=== PATIENT | female | born 1985 | race Caucasian/White ===

== ENCOUNTER 2017-06-28 00:09 | Inpatient (IN) ==
[2017-06-28] MEDS ORDERED: IPRATROPIUM/ALBUTEROL 3 ML AMPUL.NEB NEB ONE ×3 (00:41→09:44)
[2017-06-28] MEDS ORDERED: methylPREDNISolone SOD SUCC 125 MG/2 ML VIAL IV ONE (02:07)
[2017-06-28] MEDS ORDERED: ALBUTEROL SULFATE 5 MG/ML NEB SOLUTION BOTTLE NEB ONE ×2 (02:14→03:29)
[2017-06-28] MEDS ORDERED: IPRATROPIUM 2.5 ML AMPUL.NEB NEB ONE (03:37)
[2017-06-28] MEDS ORDERED: MAGNESIUM SULFATE 2 GM/50 ML BAG IV ONE (03:39)
[2017-06-28] MEDS ORDERED: MAGNESIUM SULFATE 8.12 MEQ/2 ML VIAL ONE (03:51)
[2017-06-28] MEDS ORDERED: 0.9 % SODIUM CHLORIDE 1,000 ML IV ONE (03:53)
--- NOTE | 2017-06-28 03:53 | Emergency Department Note ---
SOB HPI - General Chief Complaint: Shortness of Breath/Dyspnea Stated Complaint: suspects Flu, sob Time Seen by Provider: 06/28/17 02:05 Source: patient Mode of arrival: ambulatory Limitations: no limitations - History of Present Illness This 31-year-old female comes to the emergency room shortly after midnight on 08/28/2017 in which she has had severe shortness of breath beginning in the afternoon and similar to previous exacerbations of asthma. She has not had exacerbations of asthma for over 7 years except with some restarting of her asthma in January of this year. She has at home used her albuterol metered-dose inhaler several times. She has had flulike symptoms for a couple of days. - Related Data Previous Rx's Medication Instructions Recorded Amoxicillin 1,000 mg PO BID #40 capsule 05/23/16 Ondansetron [Zofran Odt] 4 mg PO Q4-6H PRN #10 tab 07/15/16 Allergies Allergy/AdvReac Type Severity Reaction Status Date / Time No Known Drug Allergies Allergy Verified 05/23/16 12:19 Review of Systems Review of Systems: General: Hot and cold and chills and sweats and fevers. Cardiovascular: Chest pain. No palpitations. Pulmonary see HPI. Shortness of breath, cough and wheezing. Gastrointestinal some nausea and one episode of vomiting bilious. Neurologic: Headaches and dizziness. Past Medical History - Past Medical History Medical history: Reports: asthma, other ("kidney issues"; pneumonia twice) Surgical history ED: Reports: orthopedic, other (knee surgery) Psychiatric history: Denies: anxiety, depression - Social History smoking status: Current every day smoker Alcohol use: Reports: None, Occasionally Drug use: Reports: none Physical Exam - General Limitations: no limitations General appearance: alert, in distress (see pulmonary.) - Head Head exam: atraumatic, normocephalic - Eye Eye exam: Present: PERRL, EOMI - ENT ENT exam: normal oropharynx, mucous membranes moist - Respiratory Respiratory exam: Present: respiratory distress (Mild, manifested as tachypnea in the 24-28 range.), wheezes (Severe, polyphonic herrera inspiratory and herrera expiratory Throughout all lung goins.), accessory muscle use (Very slight or mild supraclavicular and sternal notch.), prolonged expiratory phase (Mild to occasionally moderately.). Absent: stridor - Cardiovascular Cardiovascular exam: Present: regular rate, tachycardia. Absent: systolic murmur, diastolic murmur - Abdominal Exam Abdominal exam: Present: soft. Absent: distention, tenderness, guarding, rebound, rigidity - Extremities Exam Extremities exam: Absent: pedal edema, pretibial edema - Neurological Exam Neurological exam: Present: alert, oriented X3 - Psychiatric Psychiatric exam: Present: normal affect, normal mood, anxious - Skin Skin exam: Present: warm, dry Course Vital Signs Temperature 98.1 F 06/28/17 00:10 Pulse Rate 130 H 06/28/17 00:10 Respiratory Rate 25 H 06/28/17 00:10 Blood Pressure 122/70 06/28/17 00:10 Pulse Oximetry (%) 93 06/28/17 00:10 Temperature 97.6 F 06/28/17 09:56 Pulse Rate 117 H 06/28/17 09:49 Respiratory Rate 20 06/28/17 06:54 Blood Pressure 125/56 06/28/17 09:30 Pulse Oximetry (%) 96 06/28/17 09:49 Shortness of Breath/Dyspnea - [facility] Narrative Medical decision making narrative: Patient was given a second dose of albuterol nebulized. She continued to have quite loud herrera expiratory and herrera inspiratory wheezes throughout all lung goins. A heart neb was placed for over an hour. With her heart rate going to 130-135 this was held. Ipratropium was given as a nebulizer (currently being given) and 2 g of magnesium was ordered. She remains saturating completely in the normal ranges throughout all this time but her wheezing remained impressive enough to initiate additional intervention. Solu-Medrol was given early on as 125 mg IV. Additionally, labs were ordered because of the prolonged and multiple beta agonists. 3:54 AM. - Lab Data Result diagrams: 06/28/17 03:55 06/28/17 03:55 Lab Results 06/28/17 06/28/17 06/28/17 Range/Units 03:55 03:55 03:55 WBC 10.7 (4.5-11.0) K/mcL RBC 3.81 L (4.00-5.20) M/mcL Hgb 11.9 L (12.0-15.0) g/dL Hct 33.8 L (36.0-48.0) % MCV 88.8 (80.0-100.0) fL MCH 31.2 (26.0-34.0) pg MCHC 35.1 (31.0-36.0) g/dL RDW 12.7 (11.5-14.5) % Plt Count 184 (140-440) K/mcL MPV 9.6 (7.4-10.4) fL Total Counted 100 Seg Neutrophils % 78 (38-78) % Band Neutrophils % 14 H (0-10) % Lymphocytes % 4 L (15-49) % Monocytes % (Manual) 1 (1-12) % Eosinophils % (Manual) 2 (0-7) % Reactive Lymphocytes 1 (0-2) % Platelet Estimate Normal (NORMAL) RBC Morphology Normal (NORMAL) Sodium 141 (133-145) mmol/L Potassium 3.4 (3.3-5.1) mmol/L Chloride 106 (96-108) mmol/L Carbon Dioxide 21 L (22-30) mmol/L Anion Gap 14.0 (8-16) BUN 6 (6-20) mg/dl Creatinine 0.7 (0.6-1.1) mg/dl GFR Calculation 116 Glucose 140 H (70-105) mg/dL Calcium 8.5 L (8.6-10.4) mg/dl Total Bilirubin 0.3 (0.0-1.0) mg/dL AST 14 (0-37) U/l ALT 13 (0-40) U/l Alkaline Phosphatase 30 L (39-117) U/L C-Reactive Protein 2.5 H (0.0-0.8) mg/dl Total Protein 6.4 (5.9-8.4) gm/dL Albumin 3.8 (3.2-5.2) gm/dL Globulin 2.6 (2.2-3.7) gm/dL Albumin/Globulin Ratio 1.5 (1.0-2.3) Procalcitonin < 0.05 (<0.10) ng/mL Urine Color Urine Appearance Urine pH (5.0-9.0) Ur Specific [place] (1.000-1.035) Urine Protein (NEG) mg/dL Urine Glucose (UA) (NEG) mg/dL Urine Ketones (NEG) mg/dL Urine Occult Blood (<0.03) mg/dL Urine Nitrate (NEG) Urine Bilirubin (NEG) mg/dL Urine Urobilinogen (NEG) mg/dL Ur Leukocyte Esterase (NEG) /uL Urine RBC (0-1) /hpf Urine WBC (0-4) /hpf Ur Squamous Epith Cells (0-4) /hpf Ur Transition Epith Cell (0-2) /hpf Urine Bacteria (0) /hpf Ur Culture Indicated? Urine HCG, Qual (<20 mIU/ml) 06/28/17 06/28/17 Range/Units 05:03 05:03 WBC (4.5-11.0) K/mcL RBC (4.00-5.20) M/mcL Hgb (12.0-15.0) g/dL Hct (36.0-48.0) % MCV (80.0-100.0) fL MCH (26.0-34.0) pg MCHC (31.0-36.0) g/dL RDW (11.5-14.5) % Plt Count (140-440) K/mcL MPV (7.4-10.4) fL Total Counted Seg Neutrophils % (38-78) % Band Neutrophils % (0-10) % Lymphocytes % (15-49) % Monocytes % (Manual) (1-12) % Eosinophils % (Manual) (0-7) % Reactive Lymphocytes (0-2) % Platelet Estimate (NORMAL) RBC Morphology (NORMAL) Sodium (133-145) mmol/L Potassium (3.3-5.1) mmol/L Chloride (96-108) mmol/L Carbon Dioxide (22-30) mmol/L Anion Gap (8-16) BUN (6-20) mg/dl Creatinine (0.6-1.1) mg/dl GFR Calculation Glucose (70-105) mg/dL Calcium (8.6-10.4) mg/dl Total Bilirubin (0.0-1.0) mg/dL AST (0-37) U/l ALT (0-40) U/l Alkaline Phosphatase (39-117) U/L C-Reactive Protein (0.0-0.8) mg/dl Total Protein (5.9-8.4) gm/dL Albumin (3.2-5.2) gm/dL Globulin (2.2-3.7) gm/dL Albumin/Globulin Ratio (1.0-2.3) Procalcitonin (<0.10) ng/mL Urine Color Straw Urine Appearance Clear Urine pH 6.0 (5.0-9.0) Ur Specific [place] 1.008 (1.000-1.035) Urine Protein Neg (NEG) mg/dL Urine Glucose (UA) Negative (NEG) mg/dL Urine Ketones Neg (NEG) mg/dL Urine Occult Blood Neg (<0.03) mg/dL Urine Nitrate Neg (NEG) Urine Bilirubin Neg (NEG) mg/dL Urine Urobilinogen Neg (NEG) mg/dL Ur Leukocyte Esterase Neg (NEG) /uL Urine RBC 0 (0-1) /hpf Urine WBC < 1 (0-4) /hpf Ur Squamous Epith Cells 1 (0-4) /hpf Ur Transition Epith Cell < 1 (0-2) /hpf Urine Bacteria 0 (0) /hpf Ur Culture Indicated? No Urine HCG, Qual Negative <20 (<20 mIU/ml) Disposition Pt seen by ECOLOGICAL RISK ASSESSOR/PA only: No Clinical Impression: Status asthmaticus Qualifiers: Asthma severity: severe Asthma persistence: persistent Qualified Code(s): J45.52 - Severe persistent asthma with status asthmaticus Summary: Patient remained very wheezy even after her DuoNeb, albuterol nebulized, heart for 1.25 hours, ipratropium, and magnesium infusion. Her heart rate came down when she was not on truncal dilators. She never seemed to have tachypnea above 28/min but sometimes was 24-28, other times resting was 20-24. Oxygen stayed most of the time above 94% but began to drop some during the middle of her stay and so she was placed on 2 L of oxygen. Case was discussed with Dr. Rae,and a ABG was obtained which was not particularly remarkable and he accepted patient and care was transferred to him for her to be cared for inpatient. Referrals: No,PCP [Referring] -
[2017-06-28] MEDS: 0.9 % SODIUM CHLORIDE 1,000 ML IV SCH ×2 (04:00→21:29)
[2017-06-28 04:40] LABS: Mean Cell Volume 88.8 fL (80.0-100.0); Mean Corpuscular HGB Conc 35.1 g/dL (31.0-36.0); Mean Corpuscular Hemoglobin 31.2 pg (26.0-34.0); Platelet Count 184 K/mcL (140-440); RBC 3.81 M/mcL (4.00-5.20); Red Cell Distribution Width 12.7 % (11.5-14.5)
[2017-06-28 05:02] LABS: ALT/SGPT 13 U/l (0-40); Albumin 3.8 gm/dL (3.2-5.2); Albumin/Globulin Ratio 1.5 (1.0-2.3); Alkaline Phosphatase 30 U/L (39-117); Blood Urea Nitrogen 6 mg/dl (6-20); C-Reactive Protein 2.5 mg/dl (0.0-0.8)
[2017-06-28 05:06] LABS: Band Neutrophils % 14 % (0-10); Eosinophils % (Manual) 2 % (0-7); Lymphocytes % 4 % (15-49); Monocytes % (Manual) 1 % (1-12); Platelet Estimate NORMAL (NORMAL); RBC Morphology NORMAL (NORMAL); Segmented Neutrophils % 78 % (38-78)
[2017-06-28 05:48] LABS: Appearance,Urine CLEAR; Bacteria,Urine 0 /hpf (0); Bilirubin,Urine NEG (NEG); Color,Urine STRAW; Glucose,Urine (UA) NEGATIVE (NEG); Leukocyte Esterase,Urine NEG /uL (NEG); Nitrate,Urine NEG (NEG); Protein,Urine NEG (NEG); Specific Gravity,Urine 1.008 (1.000-1.035); Urine Blood NEG mg/dL (<0.03); Urine RBC 0 /hpf (0-1); Urine Squamous Epithelial Cell 1 /hpf (0-4); Urine Transitional Epi Cells < 1 /hpf (0-2); Urine WBC < 1 /hpf (0-4); Urobilinogen,Urine NEG (NEG)
--- NOTE | 2017-06-28 08:22 | XRay Report ---
HISTORY: Reason for Exam:shortness of breath, wheezing (severe) FINDINGS: There is a subtle interstitial infiltrate around the left upper hilum and another one above the right diaphragm. No lobar consolidation is present. There is no pleural effusion. The heart size, mediastinum and tere are normal. The spine has a kyphotic curvature. There is disc space narrowing at multiple levels in the midthoracic spine. IMPRESSION: Mild interstitial pneumonia around the left upper hilum and above the right diaphragm Interpreted and Authenticated by: Elvin Cabral 06/28/17
[2017-06-28] MEDS ORDERED: methylPREDNISolone SOD SUCC 125 MG/2 ML VIAL IV SCH (08:45)
[2017-06-28] MEDS ORDERED: AZITHROMYCIN 500 MG in DEXTROSE 5% IN WATER 250 ML IV SCH (10:15)
[2017-06-28] MEDS ORDERED: cefTRIAXone 1 GM in DEXTROSE 5% IN WATER 50 ML IV SCH (10:15)
[2017-06-28] MEDS ORDERED: ALBUTEROL SULFATE 2.5 MG/3 ML NEBULIZER ONE (11:28)
[2017-06-28] MEDS ORDERED: HYDROcodone/APAP 5/325MG TABLET PO PRN (12:22)
[2017-06-28] MEDS ORDERED: NALOXONE HCL 0.4 MG/ML VIAL IV PRN (12:22)
[2017-06-28] MEDS: ACETAMINOPHEN 325 MG TABLET PO PRN (12:33)
[2017-06-28] MEDS: IPRATROPIUM/ALBUTEROL 3 ML AMPUL.NEB NEB SCH ×4 (12:36→23:56)
[2017-06-28] MEDS: ALBUTEROL SULFATE 2.5 MG/3 ML NEBULIZER NEB PRN ×2 (13:03→22:17)
[2017-06-28] MEDS: HEPARIN 5,000 UNIT/ML VIAL SQ SCH ×2 (13:22→20:18)
[2017-06-28] MEDS: methylPREDNISolone SOD SUCC 125 MG/2 ML VIAL IV SCH ×2 (13:23→22:16)
[2017-06-28] MEDS: ONDANSETRON 4 MG/2 ML VIAL IV PRN (17:38)
--- NOTE | 2017-06-28 19:04 | Internal Med History&Physical ---
Medical - H&P: HPI Patient information: Note initiated : 06/28/17 at 6:56 pm Service Date, if different from initiated Date: [] Patient: Melinda Cespedes 31 y/o F admitted on 06/28/17 for Suspects Flu, SOB. Chief Complaint: [] History of present illness: Ms. Cespedes is a 31 year old Female with h/o asthma presents to the ER today with complaints of sob x 2 days The patient felt yesterday as she is coming down with a viral illness and was getting more short of breath and wheezing with decreased effort tolerance The patient has taken her inhaler numerous times with no improvement in her symptoms, therefore presented to the ER she admits to cough dry, runny nose and stuffiness. some nausea and dry heaves The patient denies any fever did have some chills, no other symptoms She was hypoxic and short of breath in the ER needing multiple rounds of duonebs as well as continuos haart neb, IV steroids, and IV magnesium with no improvement i symptoms, pt was therefore admitted to the hospital for further management X ray done in the ER showed Mild interstitial pneumonia around the left upper hilum and above the right diaphragm AB. Flu test negative. All systems: reviewed and no additional remarkable complaints except as stated ( as per HPI) Medical - H&P: PMH Medical history: Medical History Corneal ulcer, right (Acute) Toothache (Acute) Dental caries (Acute) Nausea (Acute) Status asthmaticus (Acute) Surgical history: knee sx 2002 Pertinent family history: Grandmother and grand father with asthma Mon htn maternal grand mother DM HTN Social history: smoker, quit 1 week ago denies recreational drugs, denies etoh use. Medical - H&P: Meds Allergies Allergy/AdvReac Type Severity Reaction Status Date / Time No Known Drug Allergies Allergy Verified 05/23/16 12:19 Medical - H&P: Exam - Constitutional Vitals: Temp Pulse Resp BP Pulse Ox 98.1 F 116 H 18 102/55 93 06/28/17 16:22 06/28/17 16:22 06/28/17 16:22 06/28/17 16:22 06/28/17 16:22 Exam: GENERAL: The patient is a well-developed, well-nourished in no apparent distress. Is alert and oriented x3. VITAL SIGNS: Reviewed and as noted elsewhere. HEENT: Head is normocephalic and atraumatic. Extraocular muscles are intact. Pupils are equal, round, and reactive to light. Nares appeared normal. Mouth appears any without lesions. Mucous membranes are moist. NECK: Normal to inspection, Supple, No lymphadenopathy or thyromegaly. LUNGS: Air entry equal on both sides lexi rhonich and decreased air entry, no accessory muscle use, speaking full sentences, but patient is tachypenic HEART: tachycaric Regular rate , S1 and S2 heard, no Gallop, S3 or Rub Noted, No Gross murmur heard. ABDOMEN: Soft, nontender, and nondistended. Positive bowel sounds. No hepatosplenomegaly was noted. EXTREMITIES: No cyanosis, clubbing, rash, lesions or edema. NEUROLOGIC: Cranial nerves II through XII are grossly intact. Motor and Sensory System Grossly Intact PSYCHIATRIC: Normal affect, Normal Mood. Appropriate Behavior. SKIN: No ulceration or wounds noted, No jaundice, No rash noted. Medical - H&P: Reslt - Labs CBC & Chem 7: 06/28/17 03:55 06/28/17 03:55 Labs: Short CBC 06/28/17 Range/Units 03:55 WBC 10.7 (4.5-11.0) K/mcL Hgb 11.9 L (12.0-15.0) g/dL Hct 33.8 L (36.0-48.0) % Plt Count 184 (140-440) K/mcL BMP 06/28/17 03:55 Sodium 141 Potassium 3.4 Chloride 106 Carbon Dioxide 21 L BUN 6 Creatinine 0.7 Glucose 140 H Calcium 8.5 L Liver Function 06/28/17 Range/Units 03:55 Total Bilirubin 0.3 (0.0-1.0) mg/dL AST 14 (0-37) U/l ALT 13 (0-40) U/l Alkaline Phosphatase 30 L (39-117) U/L Albumin 3.8 (3.2-5.2) gm/dL Urine 06/28/17 Range/Units 05:03 Urine Color Straw Urine Appearance Clear Urine pH 6.0 (5.0-9.0) Ur Specific [place] 1.008 (1.000-1.035) Urine Protein Neg (NEG) mg/dL Urine Glucose (UA) Negative (NEG) mg/dL Medical - H&P: A/P - Narrative A/P Narrative: A/P Acute asthma exacerbation STatus asthmaticus Community Acquired pneumonia acute hypoxic resp failure. Plan IV rocephin and zithromax duonebs q4 hrs scheduled. IV solumedrol albuterol q2hr prn monitor on tele bipap prn as needed dvt hep sq Full code. Medical - H&P: Qual - VTE Deep Vein Thrombosis/Pulmonary Embolism Present on Admission: No
[2017-06-28] MEDS ORDERED: IBUPROFEN 200 MG TABLET PO ONE (20:15)
[2017-06-29] MEDS: IPRATROPIUM/ALBUTEROL 3 ML AMPUL.NEB NEB SCH ×6 (03:45→23:25)
[2017-06-29] MEDS: methylPREDNISolone SOD SUCC 125 MG/2 ML VIAL IV SCH ×3 (05:22→21:32)
[2017-06-29] MEDS ORDERED: VANCOMYCIN 1,000 MG in 0.9 % SODIUM CHLORIDE 250 ML IV ONE (06:32)
[2017-06-29 06:43] LABS: ALT/SGPT 17 U/l (0-40); Albumin 4.2 gm/dL (3.2-5.2); Albumin/Globulin Ratio 1.4 (1.0-2.3); Alkaline Phosphatase 37 U/L (39-117); Bilirubin,Direct < 0.2 mg/dL (0.0-0.3); Blood Urea Nitrogen 12 mg/dl (6-20); Gamma Glutamyl Transpeptidase 13 U/L (5-36); Magnesium 2.2 mg/dL (1.6-2.5); Uric Acid 2.6 mg/dL (2.5-8.0)
[2017-06-29 06:47] LABS: Basophils # (Auto) 0 K/mcL (0.0-0.3); Basophils % (Auto) 0 % (0.0-2.0); Eosinophils # (Auto) 0 K/mcL (0.0-0.7); Eosinophils % (Auto) 0 % (0.0-7.0); Granulocytes % (Auto) 93.8 % (38.0-78.0); Lymphocytes # (Auto) 0.6 K/mcL (1.5-4.8); Mean Cell Volume 89.8 fL (80.0-100.0); Mean Corpuscular HGB Conc 33.8 g/dL (31.0-36.0); Mean Corpuscular Hemoglobin 30.4 pg (26.0-34.0); Monocytes # (Auto) 0.3 K/mcL (0.1-0.9); Monocytes % (Auto) 2.2 % (1.0-12.0); Platelet Count 216 K/mcL (140-440); RBC 4.35 M/mcL (4.00-5.20); Red Cell Distribution Width 13.2 % (11.5-14.5)
[2017-06-29] MEDS: IBUPROFEN 200 MG TABLET PO PRN (09:05)
[2017-06-29] MEDS: HEPARIN 5,000 UNIT/ML VIAL SQ SCH ×2 (09:06→21:31)
[2017-06-29] MEDS: cefTRIAXone 1 GM in DEXTROSE 5% IN WATER 50 ML IV SCH (09:06)
[2017-06-29] MEDS ORDERED: AZITHROMYCIN 500 MG in DEXTROSE 5% IN WATER 250 ML IV SCH (10:00)
[2017-06-29] MEDS: AZITHROMYCIN 250 MG TABLET PO SCH ×2 (11:37→12:03)
--- NOTE | 2017-06-29 11:37 | Internal Med Progress Note ---
Medical - PN: Subj Patient information: Note initiated : 06/29/17 at 11:35 am Service Date, if different from initiated Date: [] Patient: Melinda Cespedes a 31 y/o F admitted on 06/28/17 for Suspects Flu, SOB. Chief Complaint: [] Interval history: Ms. Cespedes is a 31 year old Female with h/o asthma presents to the ER today with complaints of sob x 2 days The patient felt yesterday as she is coming down with a viral illness and was getting more short of breath and wheezing with decreased effort tolerance The patient has taken her inhaler numerous times with no improvement in her symptoms, therefore presented to the ER she admits to cough dry, runny nose and stuffiness. some nausea and dry heaves The patient denies any fever did have some chills, no other symptoms She was hypoxic and short of breath in the ER needing multiple rounds of duonebs as well as continuos haart neb, IV steroids, and IV magnesium with no improvement i symptoms, pt was therefore admitted to the hospital for further management X ray done in the ER showed Mild interstitial pneumonia around the left upper hilum and above the right diaphragm AB. Flu test negative. June 29 Patient seen examined, no acute overnight events, has low grade temp. CXR suggestive of hilar infiltrte? procalcitonin is neg, pt on rocepin and zithromax Clinically diong much better, breating better, wants to go home but still needs some oxygen and has wheezing on exam she is on duonebs q4 and has needed prn albuteron in between. Peak flow this AM around 220-240, blood cx positive for gpc in one bottle, repeat cx drawn, one dose vanco given. I think this is a contaminant. if remains stable can go to med surg floor in pm. Pertinent ROS: Denies headache, dizziness Denies chest pain, palpitations improved cough and shortenss of breath Denies abdominal pain, nausea or vomiting. - Constitutional Vitals: Vital Signs Temp Pulse Resp BP Pulse Ox 99.2 F H 112 H 18 108/53 94 06/29/17 07:53 06/29/17 07:53 06/29/17 06:49 06/29/17 07:53 06/29/17 07:53 Period Temp Pulse Resp BP Sys/Marie Pulse Ox Last 24 Hr 97.6 F-100.9 F 87-128 14-31 90-138/46-71 91-98 Intake and Output 06/28/17 06/29/17 06/29/17 21:59 05:59 13:59 Intake Total 850 / 850 800 / 800 50 / 50 Output Total 1050 / 1050 700 / 700 Balance -200 / -200 100 / 100 50 / 50 Weight 181 lb 14.4 oz Intake & Output: Intake & Output 06/28/17 06/29/17 06/29/17 21:59 05:59 13:59 Intake Total 850 / 850 800 / 800 50 / 50 Output Total 1050 / 1050 700 / 700 Balance -200 / -200 100 / 100 50 / 50 Weight 181 lb 14.4 oz Intake: IV 250 / 250 50 / 50 Rocephin 1 gm In Dextrose 5% in 50 / 50 Water 50 ml @ 100 mls/hr IV Q24H [facility] Rx#:[id number] Oral 600 / 600 800 / 800 Output: Void Amount 1050 / 1050 700 / 700 Other: Meal Lunch Percent of Meal Consumed 75% # Voids 1 Exam: Constitutional; Afebrile (low grade temp), cooperative, alert, not in distress. Eyes- No icterus, , No periorbital swelling Ears- Ext ear normal, hearing normal to conversation. Neck- Midline trachea, supple Respiratory system: Air Entry equal on both sides, lexi wheezing better than yesterday CVS- Rate tachycardic rhythm regular, S1,S2 heard, no gallop, no rub. Abdomen- Soft nontender abdomen, no organomegaly, no tenderness, no guarding or rigidity, BANKING SERVICES ADVISOR- AOOx3, moving all extremities, no gross focal deficit noted. Medical - PN: Obj Da - Labs CBC & Chem 7: 06/29/17 03:55 06/29/17 03:55 Labs: Abnormal Lab Results 06/29/17 06/29/17 06/28/17 03:55 03:55 03:55 WBC 15.5 H RBC Hgb Hct MPV 10.6 H Gran % 93.8 H Lymph % (Auto) 4.0 L Gran # 14.5 H Lymph # (Auto) 0.6 L Band Neutrophils % Lymphocytes % Carbon Dioxide 21 L 21 L Glucose 130 H 140 H Calcium 8.5 L Phosphorus 4.6 H Alkaline Phosphatase 37 L 30 L C-Reactive Protein 2.5 H 06/28/17 03:55 WBC RBC 3.81 L Hgb 11.9 L Hct 33.8 L MPV Gran % Lymph % (Auto) Gran # Lymph # (Auto) Band Neutrophils % 14 H Lymphocytes % 4 L Carbon Dioxide Glucose Calcium Phosphorus Alkaline Phosphatase C-Reactive Protein Meds: Medications Acetaminophen (Tylenol) 650 mg PO Q6HP PRN PRN Reason: PAIN/FEVER > 101 Last Admin: 06/28/17 12:33 Dose: 650 mg Hydrocodone Bitart/Acetaminophen ([place] 5/325mg) 1 tab PO Q4HP PRN PRN Reason: Pain Last Admin: 06/28/17 15:10 Dose: 1 tab Albuterol Sulfate (Ventolin) 2.5 mg NEB Q2HP PRN PRN Reason: Shortness Of Breath Or Wheezing Last Admin: 06/28/17 22:17 Dose: 2.5 mg Albuterol/Ipratropium (Duoneb) 3 ml NEB Q4HRT [facility] Last Admin: 06/29/17 06:48 Dose: 3 ml Azithromycin (Zithromax) 250 mg PO DAILY [facility] Stop: 07/02/17 09:01 Heparin Sodium (Porcine) (Heparin) 5,000 unit SQ Q12 [facility] Last Admin: 06/29/17 09:06 Dose: 5,000 unit Ceftriaxone Sodium 1 gm/ (Dextrose) 50 mls @ 100 mls/hr IV Q24H [facility] Last Infusion: 06/29/17 09:37 Dose: Infused Ibuprofen (Motrin) 400 mg PO TIDP PRN PRN Reason: Headache Last Admin: 06/29/17 09:05 Dose: 400 mg Methylprednisolone Sodium Succinate (Solu-Medrol) 62.5 mg IV Q8 [facility] Last Admin: 06/29/17 05:22 Dose: 62.5 mg Naloxone HCl (Narcan) 0.1 mg IV Q2MIN PRN PRN Reason: Opiate Reversal Ondansetron HCl (Zofran) 4 mg IV Q4HP PRN PRN Reason: Nausea And Vomiting Last Admin: 06/28/17 17:38 Dose: 4 mg Medical - PN: A/P - Time Spent With Patient Total time spent is greater than 50% in coordination of care (as documented) at patient's floor/unit and/or counseling patient: - Narrative A/P Narrative: A/P Acute asthma exacerbation STatus asthmaticus Community Acquired pneumonia acute hypoxic resp failure. Plan Pt much improved but still has low grade temp as well as needs duonebs and prn meds frequenty. IV rocephin and zithromax, switch zithromax to oral duonebs q4 hrs scheduled. IV solumedrol, albuterol q2hr prn monitor on tele for now, ok to xfer to med surg in pm if improves. bipap prn as needed dvt hep sq Full code. Medical - PN: Qual - VTE Deep Vein Thrombosis/Pulmonary Embolism Present on Admission: No
[2017-06-29] MEDS: ACETAMINOPHEN 325 MG TABLET PO PRN (13:16)
[2017-06-29] MEDS ORDERED: VANCOMYCIN PER PHARMACY IV SCH (13:23)
[2017-06-29] MEDS: ONDANSETRON 4 MG/2 ML VIAL IV PRN (21:10)
[2017-06-29] MEDS: VANCOMYCIN 1,000 MG in 0.9 % SODIUM CHLORIDE 250 ML IV SCH (21:31)
[2017-06-29] MEDS ORDERED: LORazepam 0.5 MG TABLET PO PRN (22:54)
[2017-06-29] MEDS ORDERED: LORazepam 0.5 MG TABLET ONE (23:07)
[2017-06-30] MEDS: IPRATROPIUM/ALBUTEROL 3 ML AMPUL.NEB NEB SCH ×2 (03:44→07:33)
[2017-06-30] MEDS: methylPREDNISolone SOD SUCC 125 MG/2 ML VIAL IV SCH ×2 (05:54→14:04)
[2017-06-30 07:36] LABS: Basophils # (Auto) 0 K/mcL (0.0-0.3); Basophils % (Auto) 0 % (0.0-2.0); Eosinophils # (Auto) 0 K/mcL (0.0-0.7); Eosinophils % (Auto) 0.1 % (0.0-7.0); Granulocytes % (Auto) 91.6 % (38.0-78.0); Lymphocytes # (Auto) 0.8 K/mcL (1.5-4.8); Lymphocytes % (Auto) 5.8 % (15.5-49.0); Mean Cell Volume 89.1 fL (80.0-100.0); Mean Corpuscular HGB Conc 34.1 g/dL (31.0-36.0); Mean Corpuscular Hemoglobin 30.4 pg (26.0-34.0); Monocytes # (Auto) 0.3 K/mcL (0.1-0.9); Monocytes % (Auto) 2.5 % (1.0-12.0); Platelet Count 239 K/mcL (140-440); RBC 3.91 M/mcL (4.00-5.20); Red Cell Distribution Width 13.1 % (11.5-14.5)
[2017-06-30] MEDS: HEPARIN 5,000 UNIT/ML VIAL SQ SCH (08:33)
[2017-06-30] MEDS: IBUPROFEN 200 MG TABLET PO PRN (08:33)
[2017-06-30] MEDS: AZITHROMYCIN 250 MG TABLET PO SCH (08:35)
[2017-06-30] MEDS: cefTRIAXone 1 GM in DEXTROSE 5% IN WATER 50 ML IV SCH (08:36)
[2017-06-30] MEDS: 0.9 % SODIUM CHLORIDE 10 ML SYRINGE IV PRN ×2 (08:36→14:04)
[2017-06-30 08:50] LABS: Blood Urea Nitrogen 18 mg/dl (6-20)
[2017-06-30] MEDS ORDERED: VANCOMYCIN 1,500 MG in 0.9 % SODIUM CHLORIDE 500 ML IV SCH (11:00)
[2017-06-30] MEDS: VANCOMYCIN 1,000 MG in 0.9 % SODIUM CHLORIDE 250 ML IV SCH (11:29)
--- NOTE | 2017-06-30 11:50 | Discharge Summary ---
Medical - DS: Prov Patient information: Note initiated : 06/30/17 at 11:50 am Patient: Melinda Cespedes 31 y/o F admitted on 06/28/17 for Suspects Flu, SOB. Date of admission: 06/28/17 12:05 Discharge date: 06/30/17 Primary care physician: Pt reports none To establish with Emanuel Sharp ? Admitting clinician: Francisca Rae Consults: 06/28/17 08:35 Consult to Physician [CONS] Stat Comment: Consulting Provider: Francisca Rae Reason For Exam: Physician to Consult Attending physician on discharge: Meredith Reynoso Medical - DS: Meds - Discharge Medications Prescriptions: Albuterol Sulfate [Proair Hfa] 8.5 gm IH Q4HP PRN #1 [email or web address] PRN Reason: Shortness Of Breath Or Wheezing Amoxicillin/Potassium Clav [Augmentin] 875 mg PO BIDCC #10 tab Azithromycin [Zithromax] 250 mg PO DAILY #2 tab Fluticasone/Salmeterol [Advair 100-50 Diskus] 1 puff INH BID #1 inhaler predniSONE [Prednisone] 10 mg PO QAC #10 tab Active and Home Medications: Discharge medications: Zithromax 250 mg p.o. daily 2 days Augmentin 875 mg p.o. twice daily with food, 5 more days Albuterol l inhaler, 2 puffs every 4 hours as needed Advair powder inhaler 2 puffs twice a day, until wheezing stops Prednisone 10 mg, 40 mg daily starting tomorrow, 30 mg on day 2, 20 mg day 3, 10 mg day x 1 Medical - DS: Hosp Hospital course: Mr. Cespedes is a 31 year old F June 28, 2017: History of present illness: Ms. Cespedes is a 31 year old Female with h/o asthma presents to the ER today with complaints of sob x 2 days The patient felt yesterday as she is coming down with a viral illness and was getting more short of breath and wheezing with decreased effort tolerance The patient has taken her inhaler numerous times with no improvement in her symptoms, therefore presented to the ER. she admits to cough dry, runny nose and stuffiness. some nausea and dry heaves. The patient denies any fever did have some chills, no other symptoms. She was hypoxic and short of breath in the ER needing multiple rounds of duonebs as well as continuos haart neb, IV steroids, and IV magnesium with no improvement in symptoms, pt was therefore admitted to the hospital for further management X ray done in the ER showed Mild interstitial pneumonia around the left upper hilum and above the right diaphragm. AB Flu test negative. June 29 Patient seen examined, no acute overnight events, has low grade temp. CXR suggestive of hilar infiltrte? procalcitonin is neg, pt on rocepin and zithromax Clinically diong much better, breathing better, wants to go home, but still needs some oxygen and has wheezing on exam. she is on duonebs q4 and has needed prn albuteron in between. Peak flow this AM around 220-240, blood cx positive for gpc in one bottle, repeat cx drawn, one dose vanco given. I think this is a contaminant. if remains stable can go to med surg floor in pm. June 30: Hospital course: The patient improved fairly rapidly with the above-noted treatment. We decreased her nebulizer treatments overnight, and she is no longer requiring oxygen today. She does continue to wheeze, but says she no longer feels especially short of breath. She denies fever chills, but she does mention that she has been fighting a tooth abscess and a right lower molar for about the last month. She has been to see 2 different dentist. One recommended extraction, and the other told her he did not think that was necessary. She feels that has been flaring up again. Otherwise, she denies pain, chest pain or palpitations, abdominal pain, nausea or vomiting, diarrhea or constipation or dysuria. Exam, she is awake and alert, in no acute distress. T-max is 99.6, with last temp 98.6. Heart rate 85, respiratory rate 18, blood pressure 112/69, O2 saturation 96% on room air Pharynx: Shows a right lower posterior molar that has a large cavity. I do not see obvious drainage or surrounding erythema. Neck is supple without obvious lymphadenopathy or JVD. Cardiac exam shows regular rate and rhythm. Lung exam shows fairly diffuse soft wheezes, without accessory muscle use. Abdomen is soft and nontender. Extremities show no edema. Neurologic exam is grossly nonfocal. A/P Narrative: Acute asthma exacerbation STatus asthmaticus Community Acquired pneumonia acute hypoxic resp failure. #1. Asthma. Global community-acquired pneumonia. Patient symptoms are much improved over the last 48 hours. She is anxious to return home to her child. She does not appear to need oxygen. She feels she can manage breathing treatments just with inhalers at home. -We will plan on discharging her on oral Augmentin which should cover both her pneumonia and her tooth infection, as well as finish out her Zithromax. -Also start Advair, 2 puffs twice a day, until her wheezing has resolved. -Also albuterol inhaler for as needed use. Next line-also, since she was treated with IV steroids, start her on a prednisone taper. Start at 40 mg, and decrease by 10 mg per day. 2. DVT prophylaxis: Subcu heparin. 3. Full code. Next 4. Possible dental abscess. The patient is encouraged to follow-up to establish with a primary care physician right away. She will need referral to a dentist. Believe she can follow-up with Emanuel Sharp. #5. Infectious disease. On 4 blood culture bottles grew coag negative staph, thought to be a contaminant. Discharge diagnosis: Interstitial pneumonia, left hilum, right lower lobe. Asthma Exacerbation - Time Spent with Patient Total time spent providing and/or coordinating discharge services: Greater than 30 minutes Medical - DS: Exam - Constitutional Vitals: Vital Signs Temp Pulse Resp BP Pulse Ox 06/30/17 08:54 99.1 F H 18 110/77 93 06/30/17 08:00 18 93 06/30/17 04:37 99.0 F H 18 121/60 94 06/29/17 23:33 94 H 16 06/29/17 23:12 99.6 F H 18 132/85 94 06/29/17 20:56 100 H 96 06/29/17 20:18 99.3 F H 108 H 18 116/81 92 06/29/17 19:30 98 H 18 93 06/29/17 16:59 99.3 F H 84 18 120/68 94 06/29/17 16:32 99.3 F H 104 H 18 120/68 94 06/29/17 15:18 105 H 18 06/29/17 12:13 99.8 F H 107 H 18 123/79 94 Intake and Output 06/29/17 06/30/17 06/30/17 21:59 05:59 13:59 Intake Total 1100 / 1100 1050 / 1050 50 / 50 Output Total 575 / 575 Balance 525 / 525 1050 / 1050 50 / 50 Intake: IV 250 / 250 50 / 50 Vancomycin 1,000 mg In Sodium 250 / 250 Chloride 0.9% 250 ml @ 250 mls/ hr IV Q12H [facility] Rx#:[id number] Rocephin 1 gm In Dextrose 5% in 50 / 50 Water 50 ml @ 100 mls/hr IV Q24H [facility] Rx#:[id number] Oral 100 / 100 800 / 800 GI Tube Flush 1000 / 1000 Output: Void Amount 575 / 575 Other: Weight 181 lb 14.4 oz 181 lb 14.4 oz Patient Weight 07/01/17 05:59 Weight 181 lb 14.4 oz Medical - DS: Data Labs on day of discharge: Labs from last 24 hours 06/30/17 06/30/17 06/30/17 07:43 04:15 04:15 WBC 13.0 H RBC 3.91 L Hgb 11.9 L Hct 34.8 L MCV 89.1 MCH 30.4 MCHC 34.1 RDW 13.1 Plt Count 239 MPV 10.2 Gran % 91.6 H Lymph % (Auto) 5.8 L H[place]go % (Auto) 2.5 Eos % (Auto) 0.1 Baso % (Auto) 0 Gran # 11.9 H Lymph # (Auto) 0.8 L [place] # (Auto) 0.3 Eos # (Auto) 0 Baso # (Auto) 0 Sodium 142 Potassium 4.1 Chloride 105 Carbon Dioxide 22 Anion Gap 15.0 BUN 18 Creatinine 0.6 GFR Calculation 122 Glucose 122 H Calcium 8.7 Vancomycin Trough 5.0 H Preliminary micro results at discharge 06/28/17 10:25 Blood Culture - Preliminary Blood Coagulase negative staph 06/28/17 10:33 Blood Culture - Preliminary Blood 06/29/17 06:49 Blood Culture - Preliminary Blood 06/29/17 06:40 Blood Culture - Preliminary Blood Medical - DS: A/P - Patient/Caregiver Discharge Instructions Activity: increase activity as tolerated Diet: Regular Diet Additional Instructions: Resume home diet as tolerated. Increase activity as tolerated. Follow up with primary physician. To begin care, contact Dr. Emanuel Sharp at [phone]. If he is not accepting patients, try for a different physician at the same clinic. 1. Pneumonia and asthma exacerbation. Please complete prescriptions for both Zithromax and Augmentin, as directed. Please start Advair inhaler, 2 inhalations every 12 hours, until all wheezing has resolved Please take prednisone taper, as directed. Albuterol inhaler, every 2 hours as needed for shortness of breath or wheezing Please establish care with a primary care physician DOUGLAS. You need follow-up for your asthma. Next 2. Right lower molar cavity, with possible infection. The Augmentin prescribed above, should help manage this, but you will need follow-up with a dentist at some point. Next He can take Tylenol or ibuprofen, as needed, for pain. The bacteria growing from her blood culture, is likely a contaminant. We will call you if this changes. Return to ER for fever, chills, nausea and/or vomiting, uncontrolled pain, dizziness, shortness of breath, chest pain. Discharge medications: Zithromax 250 mg p.o. daily 2 days Augmentin 875 mg p.o. twice daily with food, 5 more days Albuterol l inhaler, 2 puffs every 4 hours as needed Advair powder inhaler 2 puffs twice a day, until wheezing stops Prednisone 10 mg, 40 mg daily starting tomorrow, 30 mg on day 2, 20 mg day 3, 10 mg day x 1 Prescriptions: Albuterol Sulfate [Proair Hfa] 8.5 gm IH Q4HP PRN #1 [email or web address] PRN Reason: Shortness Of Breath Or Wheezing Amoxicillin/Potassium Clav [Augmentin] 875 mg PO BIDCC #10 tab Azithromycin [Zithromax] 250 mg PO DAILY #2 tab Fluticasone/Salmeterol [Advair 100-50 Diskus] 1 puff INH BID #1 inhaler predniSONE [Prednisone] 10 mg PO [facility] #10 tab - Follow up Plan Follow up with: No,PCP [Referring] - Emanuel Sharp MD [Physician] - Disposition: Home, Self-Care Prognosis: Good Rehab Potential: Good I certify that the patient requires SNF services: No Overall status at discharge: patient is progressing back to baseline Medical - DS: Qual - VTE Deep Vein Thrombosis/Pulmonary Embolism Present on Admission: No
== END 2017-06-30 14:30 | disposition home or self-care (01) | DRG 193 ==
LOC: ED 00:09 → SUATTDRO 12:05 → ICU 12:05
PROVIDERS: ADMIT Internal Medicine; ATTEND Internal Medicine